=== PATIENT | male | born 1945 | race Caucasian/White ===

== ENCOUNTER 2017-06-29 20:33 | Emergency (ER) | payer OTHER ==
[~2017-06-29] VITALS: Ht 170.2 cm; Wt 98.5 kg
[~2017-06-29 20:33] MED LIST: AFRIN,GENASAL D15 ML BOTH NARES; ALLEGRA ALLERG180 MG PO; ASPIR-LOW81 MG PO; ATORVASTATIN CA10 MG PO; DESYREL100 MG PO; FUROSEMIDE40 MG PO; GABAPENTIN600 MG PO; GLIMEPIRIDE1 MG PO; MAGNESIUM400 M1 PO; METFORMIN HCL500 MG PO; MICRO-K10 ME2 PO; OMEPRAZOLE40 M1 PO; PROAIR HFA8.5 GM IH; SYMBICORT60 INHALAT IH; TAMSULOSIN HCL0.4 MG PO; TRAMADOL HCL50 MG PO; TYLENOL EXTRA500 MG PO; VALIUM10 MG PO
[2017-06-29 23:57] VITALS: BP 177/99
== END 2017-06-30 00:01 | disposition home or self-care (01) ==
LOC: EME 20:33
DX: S60.222A Contusion of left hand, initial encounter (principal); S80.02XA Contusion of left knee, initial encounter; S20.211A Contusion of right front wall of thorax, initial encounter; V43.52XA Car driver injured in collision with other type car in traffic accident, initial encounter; Y92.410 Unspecified street and highway as the place of occurrence of the external cause; E11.9 Type 2 diabetes mellitus without complications; I10 Essential (primary) hypertension; J45.909 Unspecified asthma, uncomplicated; Z88.6 Allergy status to analgesic agent; Z87.891 Personal history of nicotine dependence
CPT/HCPCS: 71046; 73130; 73564; 99281; 99283